=== PATIENT | male | born 1990 | race Caucasian/White ===

== ENCOUNTER 2021-07-03 23:12 | Emergency (ER) | payer OTHER, SELFPAY ==
--- NOTE | ~2021-07-03 | CT_ITS ---
EXAMINATION: CTA brain carotid DATE: 07/04/2021 08:31 CDT INDICATION: Headache. TECHNIQUE: Computed tomographic angiography (CTA) of the head was performed without and with 100 mL O mnipaque-350 intravenous contrast. CTA of the neck was performed with intravenous contrast. The dose- length product was 1901.55 mGy-cm. Maximum intensity projection and volume rendered 3D-reconstruction s were created by the technologist on a separate workstation. COMPARISON: None. FINDINGS: HEAD CT/CTA: No acute intracranial hemorrhage, infarction, mass or mass effect. No ventriculomegaly o r midline shift. Basilar cisterns are patent. Paranasal sinuses and mastoids are pneumatized. No depr essed skull fractures. There is no significant stenosis, occlusion, aneurysm or dissection. NECK CTA: No significant stenosis, occlusion, aneurysm or dissection. Lung apices are normal. Thyroid gland is normal. No significant cervical lymphadenopathy. There is 0% stenosis of the proximal right internal carotid artery relative to normal distal artery l umen diameter (NASCET criteria). There is 0% stenosis of the proximal left internal carotid artery re lative to normal distal artery lumen diameter. IMPRESSION: 1. No acute intracranial abnormality. No significant vascular abnormality of the neck or head. Reviewed, dictated and finalized at location A. IMPRESSION: 1. No acute intracranial abnormality. No significant vascular abnormality of th e neck or head.
[2021-07-03 23:37] VITALS: BP 115/55; PULSE 83; RESP 16; TEMP 36.8; O2SAT 98
[2021-07-04] MEDS: SODIUM CHLORIDE 0.9% IV 1,000 ML 999 ML IV CONT (01:10)
[2021-07-04] MEDS: KETOROLAC 30 MG/ML VIAL (*BKC) IV PUSH (01:11)
[2021-07-04] MEDS: METOCLOPRAMIDE HCL INJ 10 MG/2 ML VIAL IV PUSH (01:12)
[2021-07-04] MEDS: diphenhydrAMINE HCl INJ 50 MG/ML VIAL 25 MG IV PUSH (01:13)
[2021-07-04 01:35] LABS: Anion Gap 13 mmol/L (8-16); Blood Urea Nitrogen 17 mg/dL (9-20); Calcium 10.3 mg/dL (8.4-10.2); Carbon Dioxide 26 mmol/L (22-30); Chloride 100 mmol/L (98-107); Estimated CRCL calculation 115 ml/min; Estimated Glomerular Filt Rate > 60; Glucose 145 mg/dL (65-110); Potassium 3.9 mmol/L (3.4-5.0); Sodium 139 mmol/L (137-145)
[2021-07-04 02:19] VITALS: BP 121/60; PULSE 80; RESP 15; O2SAT 100
--- NOTE | 2021-07-04 03:51 | ED.HA ---
HPI - Headache General Chief Complaint: Headache Stated Complaint: migraine Time Seen by Provider: 07/04/21 00:53 History of Present Illness HPI Narrative: Patient is a 31-year-old male who presents ER with headache. Began in the morning on 07/03/2021. Right-sided. Sharp. Goes into the back of his neck. No trauma. Intermittent blurring his vision and reports photophobia. No history of migraine or cluster headache. No rhinorrhea. Wearing sunglasses for comfort. Reports dizziness and nausea and vomiting as well. Related Data Allergies Allergy/AdvReac Type Severity Reaction Status Date / Time No Known Allergies Allergy Mild Verified 07/04/21 01:03 Review of Systems Review of Systems: All systems reviewed & are unremarkable except as noted in HPI and below Constitutional: Constitutional: Denies chills, Denies fever(s) and Denies weakness Eyes: Eyes: Reports change in vision and Reports photophobia ENT: Denies nasal congestion and Denies sore throat Cardiovascular: Cardiovascular: Denies chest pain, Denies rapid heart rate and Denies radiating jaw, neck or arm pain Neurologic: Denies vertigo, Reports dizziness, Denies syncope, Reports headache(s), Denies focal weakness and Denies numbness PMFSH Past Medical History Medical History (Updated 07/04/21 @ 03:59 by Steven Huitron MD) Healthy adult male Surgical History Surgical History (Updated 07/04/21 @ 03:56 by Steven Huitron MD) No history of previous surgery Social History Social History (Updated 07/04/21 @ 03:56 by Steven Huitron MD) Smoking status: Never smoker Exam Narrative: GENERAL: Uncomfortable-appearing and sitting in a dark room with sunglasses on, well-nourished, and in no acute distress. HEAD: Normocephalic, atraumatic. EYES: PERRLA and EOMI. ENT: Mucous membranes moist. CHEST: Clear to auscultation. No respiratory distress. HEART: Regular rate and rhythm. Normal peripheral pulses. EXTREMITIES: Normal range of motion. No edema. NEURO: Clear speech. Alert and oriented x3. PSYCH: Normal mood and affect. Course Course Emergency Course: Headache resolved with Reglan/Benadryl/Toradol and IV fluid. CTA of the head and neck negative. Patient now reports that the headache started to come back 3/10 but feels much improved. Patient was on oxygen while in the ER. Migraine versus cluster headache. Will discharge with prednisone taper. Follow-up with PCP. Patient reports normal vision at this time. Vital Signs Vital signs: Vital Signs Temperature 98.3 F 07/03/21 23:37 Pulse Rate 83 07/03/21 23:37 Respiratory Rate 16 07/03/21 23:37 Blood Pressure 115/55 L 07/03/21 23:37 Pulse Oximetry 98 07/03/21 23:37 Temperature 98.3 F 07/03/21 23:37 Pulse Rate 80 07/04/21 02:19 Respiratory Rate 15 07/04/21 02:19 Blood Pressure 121/60 07/04/21 02:19 Pulse Oximetry 100 07/04/21 02:19 MDM - Headache Lab Data Result diagrams: 07/04/21 01:15 Labs: Lab Results 07/04/21 Range/Units 01:15 Sodium 139 (137-145) mmol/L Potassium 3.9 (3.4-5.0) mmol/L Chloride 100 (98-107) mmol/L Carbon Dioxide 26 (22-30) mmol/L Anion Gap 13 (8-16) mmol/L BUN 17 (9-20) mg/dL Creatinine 1.00 (0.7-1.3) mg/dL Estim Creat Clear Calc 115 ml/min Estimated GFR > 60 (59 - ) Glucose 145 H (65-110) mg/dL Calcium 10.3 H (8.4-10.2) mg/dL Imaging Data Radiologist's impression: CTA head neck: No acute occlusion, severe stenosis, or aneurysm. Venous sinuses are patent. No hemorrhage, hydrocephalus, mass-effect, or herniation. Neck with no significant stenosis or dissection. Discharge Plan Discharge Clinical Impression: Headache Patient Disposition: Home, Self-Care Condition: Stable Instructions: Acute Headache (ED) Additional Instructions: Your headache may be related to migraines or cluster headache. You may take Fioricet for headache. You are also being starte
[2021-07-04] MEDS: ACETAMINOPHEN 500 MG TABLET 1000 MG PO (04:21)
[2021-07-04 04:49] VITALS: BP 128/80; PULSE 75; RESP 16; O2SAT 98
== END 2021-07-04 04:21 | disposition home or self-care (01) ==
PROVIDERS: Emergency Provider Emergency Medicine; PCP Family Medicine Adolescent Medicine
DX: R51.9 Headache, unspecified (principal)
CPT/HCPCS: 36415; 70496; 70498; 80048; 96361; 96374; 96375; 99284; A9270; J1200; J1885; J2765; J7030; Q9967

== ENCOUNTER 2023-08-06 01:15 | Emergency (ER) | payer OTHER, SELFPAY ==
[2023-08-06] VITALS (10 sets, daily range): BP systolic 121–143; BP diastolic 56–87; PULSE 67–91; RESP 13–20; TEMP 36.9; O2SAT 98–100
--- NOTE | ~2023-08-06 | CT_ITS ---
EXAMINATION: CTA brain carotid DATE: 08/06/2023 04:32 INDICATION: Headache TECHNIQUE: Computed tomographic angiography (CTA) of the head was performed without and with 100 mL O mnipaque-350 intravenous contrast. CTA of the neck was performed with intravenous contrast. The dose- length product was 1870.00 mGy-cm. Maximum intensity projection and volume rendered 3D-reconstruction s were created by the technologist on a separate workstation. Automated exposure control and iterativ e reconstruction technique were employed. COMPARISON: 07/04/2021 FINDINGS: HEAD CTA: There is no intracranial hemorrhage, acute infarction, or abnormal mass lesion. The ventric les are normal. There is no abnormal mass effect or midline shift. The dillon-white matter differentiat ion is normal. The basal cisterns are patent. The orbits are normal. There is minimal opacification o f the maxillary sinuses. There is no significant stenosis of the basilar artery or posterior cerebral arteries. There is no si gnificant stenosis of the intracranial internal carotid arteries or the anterior or middle cerebral a rteries. The anterior communicating artery and posterior communicating arteries are normal. There is no aneurysm. NECK CTA: The thyroid gland is unremarkable. The submandibular and parotid glands are symmetric. Ther e is no lymphadenopathy. There are no masses identified. The airway is unremarkable. The superior med iastinum is unremarkable. There are no osseous abnormalities. There is 0% stenosis of the proximal right internal carotid artery relative to normal distal artery l umen diameter (NASCET criteria). There is 0% stenosis of the proximal left internal carotid artery re lative to normal distal artery lumen diameter. IMPRESSION: 1. No acute intracranial abnormality. Normal head CTA. 2. 0% stenosis of the proximal right internal carotid artery relative to normal distal artery lumen d iameter (NASCET criteria). 3. 0% stenosis of the proximal left internal carotid artery relative to normal distal artery lumen di ameter. Reviewed, dictated and finalized at location F. IMPRESSION: 1. No acute intracranial abnormality. Normal head CTA. 2. 0% stenosis of the proximal right internal carotid artery relative to normal distal artery lumen diameter (NASCET criteria). 3. 0% stenosis of the proximal left internal carotid artery relative to normal distal artery lumen diameter.
--- NOTE | 2023-08-06 02:13 | ED.HA ---
HPI - Headache General Chief Complaint: Headache Stated Complaint: headache Time Seen by Provider: 08/06/23 01:55 History of Present Illness HPI Narrative: Patient is a 33-year-old male with history of recurrent headaches here with a headache. He states that symptoms began around 10:00 a.m. tonight. He notes that it is severe, diffuse throughout his head associated with light sensitivity, dizziness and nausea. He notes that it feels similar to his prior headaches. They typically occur once every few years. he denies taking anything for the headache prior to arrival. notes that he was difficult to get in and out of the car and on the way here he passed out for a couple of seconds and rapidly returned to baseline. Patient states that he just felt dizzy and he does not remember syncopized thing. He denies any head trauma. He denies any recent illness. He denies cough, congestion, fever, chills, chest pain. Related Data Allergies Allergy/AdvReac Type Severity Reaction Status Date / Time No Known Allergies Allergy Mild Verified 08/06/23 01:49 Review of Systems Review of Systems: All systems reviewed & are unremarkable except as noted in HPI and below PMFSH Past Medical History Medical History (Updated 08/06/23 @ 06:27 by Kaelyn Peck MD) Healthy adult male Surgical History Surgical History (Updated 07/04/21 @ 03:56 by Steven Huitron MD) No history of previous surgery Social History Social History (Updated 07/04/21 @ 03:56 by Steven Huitron MD) Smoking status: Never smoker Exam Narrative: GENERAL: Well-appearing, well-nourished, and in no acute distress. HEAD: Normocephalic, atraumatic. EYES: PERRLA and EOMI. Wearing sunglasses ENT: Nares clear. Mucous membranes moist. NECK: Supple. CHEST: Clear to auscultation. No respiratory distress. HEART: Regular rate and rhythm. Normal peripheral pulses. ABDOMEN: Soft, nontender, nondistended. EXTREMITIES: Normal range of motion. No edema. SKIN: Warm, dry, no rash. NEURO: No focal deficits. Alert and oriented x3. PSYCH: Normal mood and affect. Course Course Emergency Course: Chart review performed. Patient here with a headache. Triage vitals normal. He does have one prior visit in our system for a headache in 2020. Patient seen evaluated, no acute distress. He does appear to be uncomfortable and is wearing sunglasses for comfort. Headache sounds very similar to his last presentation however given the severity of syncopal episode will do CT head, CTA head and neck to evaluate for possible aneurysm. Migraine cocktail ordered. Patient feeling much better after initial medications. Lab work reviewed, within normal limits. Pending CT reads. CT/CTA of head and neck negative. Will give additional dose of Toradol. Patient feels great to be discharged home. The results of pertinent diagnostic studies and exam findings were discussed. The patient?s provisional diagnosis and plan of care were discussed with the patient and present family. The patient and/or present family expressed understanding of the diagnosis and plan. The nurse was instructed to provide written instructions and appropriate follow-up information. The patient understands their need and responsibility to obtain additional follow-up as instructed. The risks of medications administered and prescribed were discussed with the patient and family present. Vital Signs Vital signs: Vital Signs Temperature 98.5 F 08/06/23 01:21 Pulse Rate 74 08/06/23 01:21 Respiratory Rate 20 08/06/23 01:21 Blood Pressure 143/72 H 08/06/23 01:21 Pulse Oximetry 99 08/06/23 01:21 Oxygen Delivery Room Air 08/06/23 01:21 Temperature 98.5 F 08/06/23 01:21 Pulse Rate 88 08/06/23 05:15 Respiratory Rate 15 08/06/23 05:15 Blood Pressure 130/78 08/06/23 05:15 Pulse Oximetry 98 08/06/23 05:15 Oxygen Delivery Room Air 08/06/23 01:21 MDM - Headache Lab
--- NOTE | 2023-08-06 02:15 | ECG_ITS ---
Measurements Intervals Howard Rate: 78 P: 65 ND: 120 QRS: 68 QRSD: 100 T: 54 QT: 386 QTc: 441 Interpretive Statements SINUS RHYTHM BASELINE ARTIFACT- I, II, III, AVR NORMAL ECG NO PREVIOUS ECG AVAILABLE FOR COMPARISON Electronically Signed On 08-07-2023 6:53:04 RN ONCOLOGY by Say Lizama D.O.
[2023-08-06] MEDS: ACETAMINOPHEN 500 MG TABLET 1000 MG PO (02:41)
[2023-08-06] MEDS: SODIUM CHLORIDE 0.9% IV 1,000 ML 999 ML IV CONT (02:41)
[2023-08-06] MEDS: METOCLOPRAMIDE HCL INJ 10 MG/2 ML VIAL IV PUSH (02:42)
[2023-08-06] MEDS: diphenhydrAMINE HCl INJ 50 MG/ML VIAL 25 MG IV PUSH (02:42)
[2023-08-06] MEDS: ONDANSETRON INJ 4 MG/2 ML VIAL IV PUSH (03:04)
[2023-08-06 03:10] LABS: Basophils Percent Auto 0.3 % (0.2-1.2); Eosinophils Percent Auto 0.1 % (0-4.4); Hematocrit 44.2 % (42.0-52.0); Hemoglobin 15.3 g/dL (14.0-18.0); Immature Granulocyte Absolute 0.02 K/mm3 (0.00-0.031); Immature Granulocyte Percent A 0.3 % (0-0.5); Lymphocytes Percent Auto 12.8 % (18.3-44.2); Mean Corpuscular HGB Conc 34.6 g/dl (32-36); Mean Corpuscular Hemoglobin 29.1 pg (26-34); Mean Corpuscular Volume 84.2 fl (80-100); Mean Platelet Volume 9.8 fl (7.4-10.4); Monocytes Absolute Auto 0.4 K/mm3 (0.1-0.6); Neutrophils Absolute Auto 6.4 K/mm3 (1.3-6.7); Neutrophils Percent Auto 81.5 % (45.5-73.1); Platelet Count Result 193 k/mm3 (150-375); Red Blood Count 5.25 M/mm3 (4.6-6.20); Red Cell Distribution Width 11.9 % (11.5-14.5); White Blood Count 7.8 K/mm3 (4.5-10.0)
[2023-08-06 03:20] LABS: Alanine Aminotransferase 31 U/L (6-50); Albumin Level 4.9 g/dL (3.5-5.1); Alkaline Phosphatase 78 U/L (38-126); Anion Gap 12 mmol/L (8-16); Aspartate Amino Transferase 26 U/L (17-59); Blood Urea Nitrogen 16 mg/dL (9-20); Calcium 9.7 mg/dL (8.4-10.2); Carbon Dioxide 25 mmol/L (22-30); Chloride 100 mmol/L (98-107); Estimated CRCL calculation 103 ml/min; Estimated Glomerular Filt Rate > 60; Glucose 134 mg/dL (65-110); Potassium 3.7 mmol/L (3.4-5.0); Sodium 137 mmol/L (137-145)
[2023-08-06 03:32] LABS: Troponin I < 0.012 ng/mL (0.000-0.034)
[2023-08-06] MEDS: KETOROLAC 15 MG/ML VIAL (*BKC) IV PUSH (06:46)
== END 2023-08-06 06:54 | disposition home or self-care (01) ==
PROVIDERS: Emergency Provider Student in an Organized Health Care Education/Training Program; PCP Family Medicine Adolescent Medicine
DX: R51.9 Headache, unspecified (principal); R55 Syncope and collapse
CPT/HCPCS: 36415; 70496; 70498; 80053; 84484; 85025; 93005; 96361; 96374; 96375; 99284; A9270; J1200; J1885; J2405; J2765; J7030; Q9967

== ENCOUNTER 2024-05-17 20:54 | Emergency (ER) | payer OTHER, SELFPAY ==
[2024-05-17 20:59] VITALS: BP 150/80; PULSE 71; RESP 14; TEMP 36.4; O2SAT 100
--- NOTE | 2024-05-17 21:21 | ED.HA ---
HPI - Headache General Chief Complaint: Headache Stated Complaint: migraine Time Seen by Provider: 05/17/24 21:04 Source: patient and family () Mode of arrival: ambulatory Limitations: no limitations History of Present Illness HPI Narrative: Patient presents with headache since yesterday. He states he has a history of cluster migraines but they have been increasing in frequency. This is associated with photophobia and nausea but no phonophobia. He had previously seen a neurologist his headaches. He denies any trauma or anticoagulation. He had had fever for 2 days as he had been diagnosed with COVID; the fever broke yesterday and he has not been febrile since. His had also had symptoms. He had been given amoxicillin andPaxlovid as well as prednisone (last dose this morning). Related Data Allergies Allergy/AdvReac Type Severity Reaction Status Date / Time No Known Allergies Allergy Mild Verified 05/17/24 21:02 [facility] Past Medical History Medical History Healthy adult male Migraine-cluster headache syndrome Surgical History Surgical History (Updated 07/04/21 @ 03:56 by Steven Huitron MD) No history of previous surgery Social History Social History Smoking status: Never smoker Living arrangements: with family Additional living arrangements comments: Exam Narrative: GENERAL: Well-appearing, well-nourished, and in no acute distress. HEAD: Normocephalic, atraumatic. EYES: Non injected, non icteric. PERRL. No APD. ENT: Nares clear, no rhinorrhea or epistaxis. NECK: Supple. CHEST: Speaking in full sentences. No respiratory distress. HEART: Regular rate and rhythm. ABDOMEN: Soft, nondistended. EXTREMITIES: Normal range of motion. No lower extremity edema. SKIN: Warm, dry, no rash. NEURO: No focal deficits. Alert and oriented x3. No abnormal movements appreciated. Patient speaks clearly without aphasia or dysarthria. PSYCH: Normal mood and affect. Course Vital Signs Vital signs: Vital Signs Temperature 97.5 F L 05/17/24 20:59 Pulse Rate 71 05/17/24 20:59 Respiratory Rate 14 05/17/24 20:59 Blood Pressure 150/80 H 05/17/24 20:59 Pulse Oximetry 100 05/17/24 20:59 Oxygen Delivery Room Air 05/17/24 20:59 Temperature 97.5 F L 05/17/24 20:59 Pulse Rate 65 05/17/24 21:57 Respiratory Rate 14 05/17/24 21:57 Blood Pressure 128/63 05/17/24 21:57 Pulse Oximetry 100 05/17/24 21:57 Oxygen Delivery Room Air 05/17/24 20:59 MDM - Headache MDM Narrative Medical decision making narrative: After obtaining the patient's history and performing a physical exam, the headache is most likely due to benign etiology. The neurological examination is non-focal, there are no high-risk features on history, vital signs are stable (only notable for hypertension), and the patient is non-toxic appearing. The Ddx for the patient's headache is tension headache, migraine, or other headache of non-emergent etiology. Unlikely SAH: Headache is exactly the same as headaches in the past. Unlikely subdural/epidural hematoma: no history of trauma, no anticoagulation Unlikely meningitis: afebrile, no meningismus, mild photophobia Unlikely temporal arteritis: pt <60 years old. Unlikely acute angle glaucoma: PERRLain Unlikely carbon monoxide poisoning: had similar covid symptoms but not headache The patient's headache was treated symptomatically with IV fluids, ketorolac, benadryl compazine. Upon reevaluation, the patient states his headache and nausea are improved although he does feel a little jittery, likely due to the compazine. He is given 1 time dose of dexamethasone as this has been shown to reduce the chance of a bounce-back/rebound headache. He would prefer to be discharged at this time is that he can sleep at home. Discharged with strict return prec
[2024-05-17] MEDS: SODIUM CHLORIDE 0.9% IV 1,000 ML 999 ML IV CONT (21:50)
[2024-05-17] MEDS: diphenhydrAMINE HCl INJ 50 MG/ML VIAL 25 MG IV PUSH (21:51)
[2024-05-17] MEDS: KETOROLAC 15 MG/ML VIAL (*BKC) IV PUSH (21:51)
[2024-05-17] MEDS: PROCHLORPERAZINE EDISYLATE 10 MG/2 ML VIAL IV PUSH (21:51)
[2024-05-17 21:57] VITALS: BP 128/63; PULSE 65; RESP 14; O2SAT 100
[2024-05-17] MEDS: dexAMETHasone 2 MG TABLET 10 MG PO (22:38)
== END 2024-05-17 23:06 | disposition home or self-care (01) ==
PROVIDERS: Emergency Provider Student in an Organized Health Care Education/Training Program; PCP Family Medicine Adolescent Medicine
DX: G43.909 Migraine, unspecified, not intractable, without status migrainosus (principal)
CPT/HCPCS: 96361; 96374; 96375; 99284; J0780; J1200; J1885; J7030; J8540

== ENCOUNTER 2024-08-08 05:43 | Emergency (ER) | payer OTHER, SELFPAY ==
[2024-08-08 05:48] VITALS: BP 137/79; PULSE 93; RESP 15; TEMP 36.6; O2SAT 100
[2024-08-08] MEDS: CLINDAMYCIN 600 MG/D5W 50 ML 600 MG/50 ML PIGGYBACK 100 MG IVPB (06:09)
--- NOTE | 2024-08-08 06:22 | ED.GENADULT ---
HPI - General Adult General Chief complaint: Skin/Abscess/Foreign Body Stated complaint: rash/sores in mouth Time Seen by Provider: 08/08/24 05:46 History of Present Illness HPI narrative: 34-year-old male present to the emergency department for evaluation for folliculitis. Patient was started on antibiotics yesterday but feels that his symptoms are still worsening. Related Data Allergies Allergy/AdvReac Type Severity Reaction Status Date / Time No Known Allergies Allergy Mild Verified 08/08/24 05:44 Review of Systems Review of Systems: All systems reviewed & are unremarkable except as noted in HPI and below PMFSH Past Medical History Medical History Healthy adult male Migraine-cluster headache syndrome Surgical History Surgical History (Updated 07/04/21 @ 03:56 by Steven Huitron MD) No history of previous surgery Social History Social History Smoking status: Never smoker Living arrangements: with family Additional living arrangements comments: Exam Narrative: APPEARANCE: Well appearing, no pain, no distress, well-nourished. HEAD: normocephalic, atraumatic. EYES: PERRLA/EOMI, conjunctivae clear. NOSE: Normal no drainage EARS:TMS clear with good light reflex. THROAT: Pharynx clear, no exudate. NECK: Supple. No adenopathy, no masses. RESPIRATORY: Airway patent, respirations nonlabored. Clear to auscultation bilaterally, no rales, rhonchi, wheezing. CARDIOVASCULAR: Regular rate and rhythm without murmurs rubs or gallops. ABDOMINAL: Soft, nontender, nondistended, normal bowel sounds MUSCULOSKELETAL: Moves all extremities. Strength/ROM intact, No edema, No calf tenderness. NEURO: Alert. Cranial nerves II through XII intact. Good gait. Good coordination SKIN: folliculitis Course Vital Signs Vital signs: Vital Signs Temperature 97.8 F 08/08/24 05:48 Pulse Rate 93 08/08/24 05:48 Respiratory Rate 15 08/08/24 05:48 Blood Pressure 137/79 08/08/24 05:48 Pulse Oximetry 100 08/08/24 05:48 Oxygen Delivery Room Air 08/08/24 05:48 Temperature 97.8 F 08/08/24 05:48 Pulse Rate 77 08/08/24 06:39 Respiratory Rate 15 08/08/24 06:39 Blood Pressure 130/80 08/08/24 06:39 Pulse Oximetry 100 08/08/24 06:39 Oxygen Delivery Room Air 08/08/24 05:48 Medical Decision Making MDM Narrative Medical decision making narrative: Patient was switched to clindamycin started on IV dose of clindamycin. Patient will be discharged home on clindamycin. Patient was also advised to take antihistamines such as Claritin Zyrtec or Benadryl to help with itching. Vital Signs Vital Signs: Vital Signs Temperature 97.8 F 08/08/24 05:48 Pulse Rate 93 08/08/24 05:48 Respiratory Rate 15 08/08/24 05:48 Blood Pressure 137/79 08/08/24 05:48 Pulse Oximetry 100 08/08/24 05:48 Oxygen Delivery Room Air 08/08/24 05:48 Temperature 97.8 F 08/08/24 05:48 Pulse Rate 77 08/08/24 06:39 Respiratory Rate 15 08/08/24 06:39 Blood Pressure 130/80 08/08/24 06:39 Pulse Oximetry 100 08/08/24 06:39 Oxygen Delivery Room Air 08/08/24 05:48 Discharge Plan Discharge Clinical Impression: Folliculitis Patient Disposition: Home, Self-Care Condition: Stable Instructions: Antibiotic Form, Folliculitis (ED) Additional Instructions: Stop taking cephalexin and switch to clindamycin. Benadryl as needed for itching. Have close follow-up with your primary care physician for a wound check in the next few days. If you have any worsening symptoms please call or return to the emergency department. I do recommend taking a probiotic for the next 4 weeks to help prevent diarrhea from the antibiotics. Prescriptions: New clindamycin HCl 300 mg capsule 300 mg PO Q6H 7 Days Qty: 28 0RF No Action [id number] [Fioricet] 50-300-40 mg capsule 1 cap PO Q8H PRN (Reason: pain) Qty: 10 0RF prednisone 10 mg tablet See Rx Instructions .Route .COMPLEX Qty: 45 0RF Rx Instructions: 60 mg x 5 days, then 50 mg x 1 day, then 40 mg x 1 day, then 30 mg x 1 day, then 20 mg x 1 day, then 10mg. Follow-up/Referrals: Cady,MECHE Sanchez [Primary Care Provider] -
[2024-08-08 06:39] VITALS: BP 130/80; PULSE 77; RESP 15; O2SAT 100
== END 2024-08-08 06:43 | disposition home or self-care (01) ==
PROVIDERS: Emergency Provider Emergency Medicine; PCP Physician Assistant
DX: L73.9 Follicular disorder, unspecified (principal)
CPT/HCPCS: 96365; 99284